=== PATIENT | female | born 1985 | race American Indian/Alaskan Native ===

== ENCOUNTER 2021-03-24 10:51 | Emergency (ER) | payer OTHER ==
[2021-03-24 11:51] VITALS: BP 147/90
[2021-03-24] MEDS ORDERED: HYDROcodone/ACETAMINOPHEN 10-325MG TAB PO ONE (11:53)
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
--- NOTE | 2021-03-24 13:07 | Cat Scan Report ---
CT MAXILLOFACIAL WITHOUT CONTRAST INDICATION / CLINICAL INFORMATION: left jaw pain and swelling. TECHNIQUE: All CT scans at this location are performed using CT dose reduction for ALARA by means of automated exposure control. COMPARISON: None available. FINDINGS: FACIAL BONES: No fracture or other significant abnormality. No osseous erosions. PARANASAL SINUSES: Mild mucosal thickening in the ethmoid sinuses. No air-fluid levels. ORBITS: No significant abnormality. SOFT TISSUES: Moderate soft tissue swelling around the left mandible with mildly enlarged left subman dibular lymph nodes which are likely reactive. No soft tissue abscess. VISUALIZED INTRACRANIAL STRUCTURES: No significant abnormality. ADDITIONAL FINDINGS: None. IMPRESSION: 1. Left jaw soft tissue swelling with reactive left submandibular lymph nodes. No soft tissue abscess . Signer Name: Steffi Sapp MD Signed: 03/24/2021 1:03 PM Workstation Name: [id number]
== END 2021-03-24 13:35 | disposition home or self-care (01) ==
LOC: ED 10:51
DX: S00.83XA Contusion of other part of head, initial encounter (principal); L04.0 Acute lymphadenitis of face, head and neck; F17.200 Nicotine dependence, unspecified, uncomplicated; Z72.89 Other problems related to lifestyle; Z79.899 Other long term (current) drug therapy; Y04.8XXA Assault by other bodily force, initial encounter; Y93.89 Activity, other specified; Y92.89 Other specified places as the place of occurrence of the external cause; Y99.8 Other external cause status
CPT/HCPCS: 70486; 99283